=== PATIENT | male | born 1980 | race Caucasian/White ===

== ENCOUNTER 2017-09-27 12:24 | Emergency (ER) | payer BC, OTHER ==
[2017-09-27 12:36] VITALS: BP 144/100; PULSE 92; TEMP 98.5; BMI 33.8
--- NOTE | 2017-09-27 14:33 | PDOC ---
History of Present Illness - General Chief Complaint: Injury Stated Complaint: LT LEG PAIN Time Seen by Provider: 09/27/17 14:23 History Source: Patient Exam Limitations: No Limitations - History of Present Illness Initial Comments: 09/27/17 14:30 CHIEF COMPLAINT: Dropped heavy object on the left foot, base of left first toe HISTORY OF PRESENT ILLNESS: Patient is a 37-year-old male, history of hypertension reports dropping a heavy object on his left foot at the base of the left first toe there is erythema there were no deformity no bruising. Able to ambulate with a limp Occurred: reports: this morning Severity: reports: moderate Method of Injury: reports: direct blow Modifying Factors: improves with: None Past History - Past Medical History Allergies/Adverse Reactions: Allergies Allergy/AdvReac Type Severity Reaction Status Date / Time No Known Allergies Allergy Verified 09/27/17 12:32 Home Medications: Ambulatory Orders Lisinopril [Prinivil] 20 mg PO DAILY 08/26/15 Ibuprofen [Motrin -] 600 mg PO QID #28 tablet 09/27/17 COPD: No HTN: Yes - Suicide/Smoking/Psychosocial Hx Smoking History: Never smoked Have you smoked in the past 12 months: No Information on smoking cessation initiated: No Hx Alcohol Use: No Drug/Substance Use Hx: No Substance Use Type: None Review of Systems - Review of Systems Constitutional: No: Symptoms Reported Respiratory: No: Symptoms reported Musculoskeletal: Yes: Joint Pain (basis of left first toe). No: Joint Swelling Integumentary: No: Erythema All Other Systems: Reviewed and Negative *Physical Exam - Vital Signs Last Vital Signs Temp Pulse Resp BP Pulse Ox 98.5 F 92 H 18 144/100 100 09/27/17 12:33 09/27/17 12:33 09/27/17 12:33 09/27/17 12:33 09/27/17 12:33 - Physical Exam General Appearance: Yes: Appropriately Dressed. No: Apparent Distress Respiratory/Chest: positive: Lungs Clear, Normal Breath Sounds Musculoskeletal: positive: Other (erythema with no visible deformity to base of left first toe) Extremity: positive: Erythema. negative: Pedal Edema, Swelling, Calf Tenderness , Inflammation Integumentary: positive: Normal Color, Dry, Erythema. negative: Swelling, Ecchymosis, Bruising Neurologic: positive: Alert, Normal Mood/Affect, Normal Response, Motor Strength 12/29 ED Treatment Course - RADIOLOGY Radiology Studies Ordered: Category Date Time Status FOOT-LEFT [RAD] Stat Radiology 09/27/17 14:29 Ordered Medical Decision Making - Medical Decision Making 09/27/17 14:33 A/P: Patient here for evaluation of injury to base of left first toe 09/27/17 15:29 X-ray demonstrates no fracture dislocation of the discharge patient home, supportive care, Motrin for pain if pain persists in 1 week follow-up with orthopedics *DC/Admit/Observation/Transfer Diagnosis at time of Disposition: Injury, foot Qualifiers: Encounter type: initial encounter Laterality: right Qualified Code(s): S99.921A - Unspecified injury of right foot, initial encounter - Discharge Dispostion Disposition: HOME - Prescriptions Prescriptions: Ibuprofen [Motrin -] 600 mg PO QID #28 tablet - Referrals Referrals: Anthony Evans [Primary Care Provider] - - Patient Instructions Additional Instructions: 1. Please return to the emergency department with any redness, swelling, increased pain, or any other concerns. 2. Please follow up in the office of Dr. Salas within a week if pain persists. 3. No weightbearing 4. Ice and elevate when at rest. 5. Motrin for pain - Post Discharge Activity Forms/Work/School Notes: Back to Work
== END 2017-09-27 15:32 | disposition home or self-care (01) ==
LOC: JERFT 12:24
DX: S99.822A Other specified injuries of left foot, initial encounter (principal); W20.8XXA Other cause of strike by thrown, projected or falling object, initial encounter; Y93.89 Activity, other specified; Y92.89 Other specified places as the place of occurrence of the external cause; Y99.8 Other external cause status; I10 Essential (primary) hypertension
CPT/HCPCS: 73630-TC-LT; 99281-25